=== PATIENT | female | born 1975 | race African-American/Black ===

== ENCOUNTER 2019-03-05 12:45 | Emergency (ER) | payer BC ==
[~2019-03-05] VITALS: Ht 160 cm; Wt 81.7 kg
[2019-03-05 12:46] VITALS: BP 146/88
[2019-03-05] MEDS ORDERED: TRAMADOL 50 MG50 MG PO (13:14)
[2019-03-05] MEDS ORDERED: NAPROSYN500 MG PO (13:14)
[2019-03-05 14:08] LABS: CALCIUM 9.1 mg/dL (8.5-10.1); CREATININE 0.6 mg/dL (0.6-1.0); POTASSIUM 4.2 mmol/L (3.5-5.1)
[2019-03-05 14:14] LABS: ALBUMIN 3.8 g/dL (3.4-5.0); MAGNESIUM 2.2 mg/dL (1.8-2.4); TOTAL BILIRUBIN 0.6 mg/dL (<0.1-1.0); TOTAL PROTEIN 7.9 g/dL (6.4-8.2)
== END 2019-03-05 15:49 | disposition home or self-care (01) ==
LOC: ER 12:45
PROVIDERS: Emergency Medicine
DX: M54.42 Lumbago with sciatica, left side (principal); M54.41 Lumbago with sciatica, right side; I10 Essential (primary) hypertension